=== PATIENT | female | born 1985 | race Caucasian/White ===

== ENCOUNTER 2022-06-07 16:31 | Emergency (ER) | payer BC | END 2022-06-07 21:01 | disposition home or self-care (01) | LOC: MW.ED 16:31 | DX: N83.8 Other noninflammatory disorders of ovary, fallopian tube and broad ligament (principal) | CPT/HCPCS: 76856; 76856-26; 81001; 81025; 87086; 99283; 99284 ==

== ENCOUNTER 2022-06-17 08:08 | Day surgery (SDC) | payer BC ==
[~2022-06-17 08:08] MED LIST: Lactated Ringers 1,000 ML IV SCH
[2022-06-17] MEDS ORDERED: Scopolamine 1.5 MG Transdermal Patch TRDERM PRN (08:28)
[2022-06-17] MEDS ORDERED: Fluorescein 5 ML Vial ONE (08:54)
[2022-06-17] MEDS ORDERED: Midazolam 1 MG/ML 2 ML SDV ONE (08:54)
[2022-06-17] MEDS ORDERED: Albuterol 0.083% 2.5 MG/3 ML Neb Soln NEB PRN (09:02)
[2022-06-17] MEDS ORDERED: Ondansetron 4 MG/2 ML SDV IVPUSH PRN (09:02)
[2022-06-17] MEDS ORDERED: Morphine 2 MG/ML SYRINGE IVPUSH PRN (09:02)
[2022-06-17] MEDS ORDERED: Naloxone 0.4 MG/ML SDV IVPUSH PRN (09:02)
[2022-06-17] MEDS ORDERED: Metoclopramide 10 MG/2 ML SDV IVPUSH PRN (09:02)
[2022-06-17] MEDS ORDERED: fentaNYL 50 MCG/ML SDV IVPUSH PRN (09:02)
[2022-06-17] MEDS ORDERED: HYDROmorphone 1 MG/ML Syringe IVPUSH PRN (09:02)
[2022-06-17] MEDS ORDERED: Propofol 200 MG/20 ML SDV ONE (09:30)
[2022-06-17] MEDS ORDERED: Bupivacaine 0.5% 30 ML SDV ONE (09:35)
[2022-06-17] MEDS ORDERED: Bupivacaine 25%/EPINEPHrine/PF 30 ML ONE (09:45)
[2022-06-17] MEDS ORDERED: Dexamethasone 4 MG/ML 5 ML MDV ONE (09:49)
[2022-06-17] MEDS ORDERED: Rocuronium Bromide 50 MG/5 ML Syringe ONE (09:49)
[2022-06-17] MEDS ORDERED: Sugammadex Sodium 200 MG/2 ML VIAL ONE (09:49)
[2022-06-17] MEDS ORDERED: fentaNYL 100 MCG/2 ML SDV ONE (09:49)
[2022-06-17] MEDS ORDERED: Ketorolac 30 MG/ML SDV ONE (09:49)
[2022-06-17] MEDS ORDERED: Lidocaine 2% 5 ML SDV ONE (09:49)
[2022-06-17] MEDS ORDERED: Ondansetron 4 MG/2 ML SDV ONE (09:49)
[2022-06-17] MEDS ORDERED: Meperidine PF 25 MG/ML SDV IVPUSH ONE ×2 (12:14→12:43)
== END 2022-06-17 14:50 | disposition home or self-care (01) ==
LOC: MW.SDS 08:08
PROVIDERS: ATTEND Obstetrics & Gynecology
DX: D27.0 Benign neoplasm of right ovary (principal); Z79.899 Other long term (current) drug therapy; Z91.011 Allergy to milk products
CPT/HCPCS: 58661; A9270; J0131; J1100; J1170; J1885; J2175; J2250; J2405; J2704; J3010; J3490; J7030; J7120; 00840; 64488